=== PATIENT | female | born 1960 | race Caucasian/White ===

== ENCOUNTER 2019-08-29 08:02 | Day surgery (SDC) | payer OTHER ==
[2019-08-29] MEDS ORDERED: BOTOX IJ ONE (08:03)
[2019-08-29] MEDS ORDERED: Ketamine HCl 50 MG/ML ONE (09:42)
[2019-08-29] MEDS ORDERED: DIPRIVAN 200 MG/20 ML IV ONE (09:42)
[2019-08-29] MEDS ORDERED: Lactated Ringers 1,000 ML IV ONE (14:43)
== END 2019-08-29 10:23 | disposition home or self-care (01) ==
LOC: SDC-PAIN 08:02
PROVIDERS: ATTEND Psychiatry & Neurology Pain Medicine
DX: G43.709 Chronic migraine without aura, not intractable, without status migrainosus (principal); M54.18 Radiculopathy, sacral and sacrococcygeal region; Z79.899 Other long term (current) drug therapy
CPT/HCPCS: 64615; J2704; J0585

== ENCOUNTER 2019-12-05 09:14 | Day surgery (SDC) | payer OTHER ==
[2019-12-05] MEDS ORDERED: Depo-Medrol 40 MG/ML IM ONE (09:15)
[2019-12-05] MEDS ORDERED: Xylocaine 1% Vial 30 ML PF IJ ONE (09:15)
[2019-12-05] MEDS ORDERED: Sodium Chloride 0.9% 10 ML FLUSH Syringe IJ ONE (09:15)
[2019-12-05] MEDS ORDERED: DIPRIVAN 200 MG/20 ML IV ONE (10:28)
[2019-12-05] MEDS ORDERED: Ketamine HCl 50 MG/ML ONE (10:28)
--- NOTE | 2019-12-05 12:24 | XRAY ---
Indication: Lumbar JUN. Intraoperative fluoroscopy was provided for 15 seconds. 2 digital spot images submitted for interpretation demonstrates midline posterior needle tip projecting just posterior to the L3-L4 interspace. Small amount of contrast injected for needle tip placement. Correlate with intraoperative findings/report.
--- NOTE | 2019-12-05 14:26 | XRAY ---
15 seconds of fluoroscopy was used in surgery for a lumbar JUN.
[2019-12-05] MEDS ORDERED: Lactated Ringers 1,000 ML IV ONE (14:52)
== END 2019-12-05 11:21 | disposition home or self-care (01) ==
LOC: SDC-PAIN 09:14
PROVIDERS: ATTEND Psychiatry & Neurology Pain Medicine
DX: M54.16 Radiculopathy, lumbar region (principal); Z79.899 Other long term (current) drug therapy
CPT/HCPCS: 62323; 72100; 77003; J1030; J2001; J2704; Q9966

== ENCOUNTER 2019-12-26 15:10 | Day surgery (SDC) | payer OTHER ==
[~2019-12-26 15:10] MED LIST: DIPRIVAN 200 MG/20 ML IV ONE; Ketamine HCl 50 MG/ML ONE
[2019-12-26] MEDS ORDERED: BOTOX IJ ONE (15:11)
[2019-12-26] MEDS ORDERED: Lactated Ringers 1,000 ML IV ONE (15:58)
[2019-12-26] MEDS ORDERED: Versed 2 MG/2 ML Injection ONE (16:31)
== END 2019-12-26 17:21 | disposition home or self-care (01) ==
LOC: SDC-PAIN 15:10
PROVIDERS: ATTEND Psychiatry & Neurology Pain Medicine
DX: G43.909 Migraine, unspecified, not intractable, without status migrainosus (principal); Z79.899 Other long term (current) drug therapy
CPT/HCPCS: 64615; J2250; J2704; J0585

== ENCOUNTER 2020-04-30 13:48 | Day surgery (SDC) | payer OTHER ==
[2020-04-30] MEDS ORDERED: Decadron 4 MG INJ IV ONE (13:49)
[2020-04-30] MEDS ORDERED: Depo-Medrol 40 MG/ML IM ONE (13:49)
[2020-04-30] MEDS ORDERED: BUPIVACAINE 0.5% VIAL IJ ONE (13:49)
[2020-04-30] MEDS ORDERED: Xylocaine 1% Vial 30 ML PF IJ ONE (13:49)
[2020-04-30] MEDS ORDERED: DIPRIVAN 200 MG/20 ML IV ONE (15:11)
[2020-04-30] MEDS ORDERED: Lactated Ringers 1,000 ML IV ONE (15:17)
--- NOTE | 2020-04-30 16:40 | XRAY ---
20 seconds fluoroscopy time in surgery for bilateral piriformis muscle injection.
--- NOTE | 2020-04-30 16:41 | XRAY ---
Indication: Bilateral piriformis muscle injection. Intraoperative fluoroscopy was provided for 20 seconds. 2 digital spot images submitted for interpretation demonstrates posterior needle tip projecting over the expected left and right piriformis muscle. Small amount of contrast injected for both needle tip placement. Correlate with intraoperative findings/report.
== END 2020-04-30 15:45 | disposition home or self-care (01) ==
LOC: SDC-PAIN 13:48
PROVIDERS: ATTEND Psychiatry & Neurology Pain Medicine
DX: M60.9 Myositis, unspecified (principal); G56.03 Carpal tunnel syndrome, bilateral upper limbs; Z79.899 Other long term (current) drug therapy
CPT/HCPCS: 20526; 20552; 72202; 77002; J1030; J1100; J2001; J2704; Q9966

== ENCOUNTER 2020-07-04 12:16 | Emergency (ER) | payer OTHER ==
--- NOTE | 2020-07-04 12:18 | ERPHSYRPT ---
- History of Present Illness Time Seen by Provider: 07/04/20 12:18 Historian: patient Exam Limitations: no limitations Physician History: This is a 60-year-old white female who presents with sudden onset of left flank pain that radiates down into her left groin. Patient has had no vomiting but has had mild nausea. She is had no diarrhea. She has no chest pain and no shortness of breath. Patient has no history of nephrolithiasis/ureterolithiasis in the past. Patient states she is allergic to morphine but has had Dilaudid in the past with no problems. She has very little abdominal pain. Timing/Duration: today Activities at Onset: none Quality: sharpness, stabbing Abdominal Pain Onset Location: flank (Left) Pain Radiation: groin (Left) Severity of Pain-Max: moderate Severity of Pain-Current: moderate Modifying Factors: Improves With: nothing Associated Symptoms: No chest pain, No fever/chills, No nausea, No vomiting Previous symptoms: no prior history Allergies/Adverse Reactions: morphine Allergy (Severe, Verified 07/04/20 12:24) anaphylaxis Home Medications: Cetirizine HCl [Zyrtec] 10 mg PO 07/04/20 [History] Gabapentin [Gralise] 1,800 mg PO DAILY 07/04/20 [History] Montelukast Sodium 10 mg [Singulair 10 MG] 10 mg PO DAILY 07/04/20 [History] Travel Risk - International Travel Have you traveled outside of the country in past 3 weeks: No - Coronavirus Screening Are you exhibiting any of the following symptoms?: No Close contact with a COVID-19 positive Pt in past 14-21 Days: No - Review of Systems Constitutional: No Symptoms Eyes: No Symptoms Ears, Nose, & Throat: No Symptoms Respiratory: No Symptoms Cardiac: No Symptoms Abdominal/Gastrointestinal: No Symptoms Genitourinary Symptoms: No Symptoms Musculoskeletal: No Symptoms Skin: No Symptoms Neurological: No Symptoms Psychological: No Symptoms Endocrine: No Symptoms Hematologic/Lymphatic: No Symptoms Immunological/Allergic: No Symptoms All Other Systems: Reviewed and Negative - Past Medical History Pertinent Past Medical History: Yes Neurological History: Migraines Cardiac History: No Pertinent History Respiratory History: No Pertinent History Endocrine Medical History: No Pertinent History Musculoskeletal History: No Pertinent History Other Medical History: OCCIPITAL NEURALGIA; PT. HAS DAILY OCCIPITAL HAS INTO FRONTAL LOBE. - Past Surgical History Past Surgical History: Yes - Nursing Vital Signs Nursing Vital Signs: Initial Vital Signs Temperature 98.5 F 07/04/20 12:17 Pulse Rate 113 H 07/04/20 12:17 Respiratory Rate 28 H 07/04/20 12:17 Blood Pressure 173/102 07/04/20 12:17 O2 Sat by Pulse Oximetry 97 07/04/20 12:17 Pain Scale Pain Intensity 10 - Physical Exam General Appearance: moderate distress, alert, anxiety Eye Exam: PERRL/EOMI, eyes nml inspection Ears, Nose, Throat Exam: normal ENT inspection, moist mucous membranes Neck Exam: normal inspection, non-tender, supple, full range of motion Respiratory Exam: normal breath sounds, lungs clear, airway intact, No chest tenderness, No respiratory distress Cardiovascular Exam: tachycardia Pelvic Exam: not done Rectal Exam: not done Back Exam: normal inspection, normal range of motion, CVA tenderness (Left), No vertebral tenderness Extremity Exam: normal inspection, normal range of motion, pelvis stable Neurologic Exam: alert, oriented x 3, cooperative, healthcare analyst II-XII nml as tested, normal mood/affect, nml cerebellar function, nml station & gait, sensation nml Skin Exam: normal color, warm, dry Lymphatic Exam: No adenopathy SpO2 Interpretation: normal O2 Delivery: Room Air - Course Nursing assessment & vital signs reviewed: Yes EKG Interpreted by Me: RATE, Sinus Tach, NORMAL AXIS, NORMAL INTERVALS, NORMAL QRS, NORMAL ST-T, Other (Acute ischemic changes on today's EKG. Comparison EKG 05/23/2019 is essentially the same with no evidence of any significant change. Today's heart rate is 100 bpm and the EKG dated 05/23/2019 is 98 bpm everything else has remained the same.) Ordered Tests: Active Orders 24 hr Category Date Time Status EKG-ER Only STAT Care 07/04/20 12:37 Active IV Insertion STAT Care 07/04/20 12:37 Active ABDOMEN AND PELVIS W/0 CONTRAS [CT] Stat Exams 07/04/20 12:37 Completed AMYLASE Stat Lab 07/04/20 12:15 Completed CMP Stat Lab 07/04/20 12:15 Completed CULTURE,URINE Stat Lab 07/04/20 12:46 Received LIPASE Stat Lab 07/04/20 12:15 Completed Lactic Acid Stat Lab 07/04/20 12:45 Completed UA W/RFX UR CULTURE Stat Lab 07/04/20 12:46 Completed Medication Summary Discontinued Medications Generic Name Dose Route Start Last Admin Trade Name Jesseq PRN Reason Stop Dose Admin Hydromorphone HCl 1 mg 07/04/20 12:37 07/04/20 12:47 Hydromorphone 1 Mg/Ml Injection IV 07/04/20 12:38 1 mg STAT ONE Administration Hydromorphone HCl Confirm 07/04/20 12:39 Hydromorphone 1 Mg/Ml Injection Administered 07/04/20 12:40 Dose 1 mg .ROUTE .STK-MED ONE Hydromorphone HCl 1 mg 07/04/20 13:22 07/04/20 13:25 Hydromorphone 1 Mg/Ml Injection IV 07/04/20 13:23 1 mg STAT ONE Administration Hydromorphone HCl Confirm 07/04/20 13:24 Hydromorphone 1 Mg/Ml Injection Administered 07/04/20 13:25 Dose 1 mg .ROUTE .STK-MED ONE Sodium Chloride 1,000 mls @ 999 mls/hr 07/04/20 12:37 07/04/20 12:49 Sodium Chloride 0.9% 1000 Ml IV 07/04/20 13:37 999 mls/hr .Q1H1M STA Administration Sodium Chloride Confirm 07/04/20 12:48 Sodium Chloride 0.9% 1000 Ml Administered 07/04/20 12:49 Dose 1,000 mls @ ud .ROUTE .STK-MED ONE Ketorolac Tromethamine 30 mg 07/04/20 12:37 07/04/20 12:47 Toradol 30 Mg Injection IV 07/04/20 12:38 30 mg STAT ONE Administration Ketorolac Tromethamine Confirm 07/04/20 12:39 Toradol 30 Mg Injection Administered 07/04/20 12:40 Dose 30 mg .ROUTE .STK-MED ONE Ondansetron HCl 4 mg 07/04/20 12:37 07/04/20 12:47 Zofran 4 Mg/2 Ml Vial IV 07/04/20 12:38 4 mg STAT ONE Administration Ondansetron HCl Confirm 07/04/20 12:39 Zofran 4 Mg/2 Ml Vial Administered 07/04/20 12:40 Dose 4 mg .ROUTE .STK-MED ONE Lab/Rad Data: Laboratory Result Diagrams 07/04/20 12:15 Laboratory Results 07/04/20 07/04/20 07/04/20 Range/Units 12:46 12:45 12:15 Sodium 139 (137-145) mmol/L Potassium 3.9 (3.5-5.1) mmol/L Chloride 102 (98-107) mmol/L Carbon Dioxide 28 (22-30) mmol/L Anion Gap 12.9 (5-15) MEQ/L BUN 15 (7-17) mg/dL Creatinine 0.76 (0.52-1.04) mg/dL Estimated GFR > 60.0 ML/MIN Glucose 108 H (74-106) mg/dL Lactic Acid 1.4 (0.4-2.0) Calcium 10.1 (8.4-10.2) mg/dL Total Bilirubin 0.40 (0.2-1.3) mg/dL AST 32 (14-36) U/L ALT 42 H (0-35) U/L Alkaline Phosphatase 87 (38-126) U/L Serum Total Protein 7.8 (6.3-8.2) g/dL Albumin 4.6 (3.5-5.0) g/dL Amylase 53 (30-110) U/L Lipase 105 (23-300) U/L Urine Color YELLOW (YELLOW) Urine Appearance CLEAR (CLEAR) Urine pH 7.0 (5-6) Ur Specific [place] 1.014 (1.005-1.025) Urine Protein 30 (Negative) Urine Ketones NEGATIVE (NEGATIVE) Urine Blood MODERATE (0-5) Juan Ramon/ul Urine Nitrite NEGATIVE (NEGATIVE) Urine Bilirubin NEGATIVE (NEGATIVE) Urine Urobilinogen NEGATIVE (0-1) mg/dL Ur Leukocyte Esterase NEGATIVE (NEGATIVE) Urine WBC (Auto) 3-5 (0-5) /HPF Urine RBC (Auto) >101 (0-2) /HPF U Epithel Cells (Auto) RARE (FEW) /HPF Urine Bacteria (Auto) RARE (NEGATIVE) /HPF Urine Mucus (Auto) SLIGHT (NEGATIVE) /HPF Urine Culture Reflexed YES (NO) Urine Glucose NEGATIVE (NEGATIVE) mg/dL - Progress Progress: improved, pain not gone completely, re-examined Progress Note: 07/04/20 13:36 Patient states that her pain has significantly improved but is beginning to come back again. CAT scan of the abdomen pelvis without contrast shows a new 7 mm left UVJ calculus producing moderate hydronephrosis and moderate hydroureter. 07/04/20 13:52 Medical decision making: I did speak with Dr. Menendez, urologist at [facility]. This was at the request of the patient. Dr. Menendez stated that the patient had 3 options. 1 is to go home with pain medicine and Flomax, #2 follow-up at [facility] if her symptoms suddenly worsen, or 3 she could be transferred to [facility] where he would take care of her as an inpatient and provide intravenous fluids, pain control and then proceed with surgical intervention tomorrow morning. I gave these options to the patient and she prefers to be transferred at this time. Counseled pt/family regarding: lab results, diagnosis, need for follow-up, rad results - Departure Departure Disposition: Transfer Clinical Impression: Left ureteral calculus Condition: Stable Critical Care Time: No Referrals: YOSELIN RENO NP [Primary Care Provider] -
[2020-07-04] MEDS ORDERED: Sodium Chloride 0.9% 1000 ML 1,000 ML IV STA (12:37)
[2020-07-04] MEDS ORDERED: Zofran 4 MG/2 ML VIAL IV ONE (12:37)
[2020-07-04] MEDS ORDERED: TORAdol 30 mg Injection IV ONE (12:37)
[2020-07-04] MEDS ORDERED: Hydromorphone 1 mg/ml Injection IV ONE ×2 (12:37→13:22)
[2020-07-04] MEDS ORDERED: TORAdol 30 mg Injection ONE (12:39)
[2020-07-04] MEDS ORDERED: Hydromorphone 1 mg/ml Injection ONE ×2 (12:39→13:24)
[2020-07-04] MEDS ORDERED: Zofran 4 MG/2 ML VIAL ONE (12:39)
[2020-07-04] MEDS ORDERED: Sodium Chloride 0.9% 1000 ML 1,000 ML ONE (12:48)
[2020-07-04 12:58] LABS: Appearance CLEAR (CLEAR); Bacteria RARE /HPF (NEGATIVE); Bilirubin NEGATIVE (NEGATIVE); Blood MODERATE Ery/ul (0-5); Epithelial Cells RARE /HPF (FEW); Glucose NEGATIVE (NEGATIVE); Ketones NEGATIVE (NEGATIVE); Leukocyte Esterase NEGATIVE (NEGATIVE); Mucus SLIGHT /HPF (NEGATIVE); Nitrite NEGATIVE (NEGATIVE); Protein,Urine Dip 30 (Negative); Specific Gravity 1.014 (1.005-1.025); Urobilinogen NEGATIVE mg/dL (0-1)
[2020-07-04 12:59] LABS: RBC >101 /HPF (0-2)
[2020-07-04 13:08] LABS: ALBUMIN 4.6 g/dL (3.5-5.0); ALKALINE PHOSPHATASE 87 U/L (38-126); AMYLASE 53 U/L (30-110); ANION GAP 12.9 MEQ/L (5-15); BLOOD UREA NITROGEN 15 mg/dL (7-17); CHLORIDE 102 mmol/L (98-107); Calcium 10.1 mg/dL (8.4-10.2); Carbon Dioxide 28 mmol/L (22-30); Creatinine 1 0.76 mg/dL (0.52-1.04); EST GLOMERULAR FILTRATION RATE > 60.0 ML/MIN; Glucose 108 mg/dL (74-106); LIPASE 105 U/L (23-300); Potassium 3.9 mmol/L (3.5-5.1); SGOT/AST 32 U/L (14-36); SGPT/ALT 42 U/L (0-35); SODIUM 139 mmol/L (137-145); Total Protein 7.8 g/dL (6.3-8.2)
--- NOTE | 2020-07-04 13:21 | XRAY ---
Indication: Left flank pain. Dysuria. Multiple contiguous axial images obtained through the abdomen and pelvis without contrast using renal stone protocol. Comparison: January 29, 2009. Lung bases demonstrates minimal bilateral dependent atelectasis. No infiltrate or effusion. Heart is not enlarged. New 7 mm left UVJ calculus. Proximal left ureter is distended up to 15 mm long with moderate hydronephrosis consistent with high-grade obstructive uropathy. No perinephric fluid. Right kidney demonstrates enlarging 5.9 cm upper pole cyst and new 1.6 cm lower pole cyst. Noncontrasted stomach and bowel loops are nonobstructed. Normal appendix. Again cholecystectomy and hysterectomy. No free fluid/air. Remaining liver, pancreas, spleen, adrenal glands, kidneys, ureters, and bladder are unremarkable for noncontrast exam. Minimal aortoiliac calcifications without AAA. Osseous structures intact with minimal degenerative changes throughout the spine. New small fatty left inguinal hernia. Impression: 1. New 7 mm left UVJ calculus producing moderate hydronephrosis and moderate hydroureter as detailed. 2. Enlarging right upper renal cyst and new lower renal cyst. 3. New small fatty left inguinal hernia.
[2020-07-04 13:23] VITALS: PULSE 104
[2020-07-04 14:03] VITALS: BP 124/77; O2SAT 98
[2020-07-04] MEDS ORDERED: Flomax 0.4 MG ONE (14:03)
[2020-07-04 14:19] LABS: Absolute Neutrophil Ct (ANC) 3.94 (1.4-6.9); BASOPHIL % 0.5 % (0.0-0.4); Basophil (Absolute #) 0.04 (0-0.4); Eosinophil % 4.6 % (0.00-5.0); Eosinophil (Absolute #) 0.35 (0-0.5); Hematocrit 44.2 % (35-47); Hemoglobin 13.8 gm/dl (12.0-16.0); Lymphocyte (Absolute #) 2.61 (1.0-4.6); Lymphocytes % 34.4 % (24.0-44.0); Mean Corpuscular Hemoglobin 27.5 pg (26-32); Mean Corpuscular Hgb Concent. 31.2 g/dl (32-36); Mean Platelet Volume 10.2 fl (7.5-11.0); Monocyte (Absolute #) 0.64 (0.0-1.3); Monocytes % 8.4 % (0.0-12.0); Neutrophil % 52.1 % (36.0-66.0); Platelet Count 375 K/mm3 (150-450); Red Blood Count 5.02 M/mm3 (4.1-5.4); Red Cell Distribution Width 16.1 % (11.5-14.0); White Blood Count 7.6 K/mm3 (4.0-10.5)
[2020-07-05] MEDS ORDERED: Flomax 0.4 MG PO ONE (14:00)
== END 2020-07-04 14:20 | disposition short-term general hospital (02) ==
LOC: ED 12:16
DX: N20.1 Calculus of ureter (principal)
CPT/HCPCS: 36000; 36415; 74176; 80053; 81001; 82150; 83605; 83690; 85025; 87077; 87086; 87186; 93005; 96360; 96374; 96375; 96376; 99285; J1170; J1885; J2405; A9270-GY

== ENCOUNTER 2021-06-17 12:05 | Day surgery (SDC) | payer OTHER ==
[2021-06-17] MEDS ORDERED: BUPIVACAINE 0.5% VIAL IJ ONE (12:06)
[2021-06-17] MEDS ORDERED: Depo-Medrol 40 MG/ML IM ONE (12:06)
[2021-06-17] MEDS ORDERED: Lactated Ringers 1,000 ML IV ONE (13:07)
[2021-06-17] MEDS ORDERED: DIPRIVAN 200 MG/20 ML IV ONE (13:52)
--- NOTE | 2021-06-17 15:08 | XRAY ---
Indication: Bilateral SI joint injection. Intraoperative fluoroscopy provided for 16 seconds. 4 digital spot image submitted for interpretation demonstrates posterior needle tip projecting over the inferior left and right SI joint. Correlate with intraoperative findings/report.
--- NOTE | 2021-06-17 17:15 | XRAY ---
16 seconds fluoroscopy time in surgery for injections of both SI joints.
== END 2021-06-17 14:20 | disposition home or self-care (01) ==
LOC: SDC-PAIN 12:05
PROVIDERS: ATTEND Psychiatry & Neurology Pain Medicine
DX: M46.1 Sacroiliitis, not elsewhere classified (principal); R73.03 Prediabetes; Z79.899 Other long term (current) drug therapy
CPT/HCPCS: 27096; 72202; 77002; 82947; J1030; J2704; G0260

== ENCOUNTER 2021-07-08 15:05 | Day surgery (SDC) | payer OTHER ==
[2021-07-08] MEDS ORDERED: Xylocaine 1% Vial 30 ML PF IJ ONE (15:06)
[2021-07-08] MEDS ORDERED: Decadron 4 MG INJ IV ONE (15:06)
[2021-07-08] MEDS ORDERED: MORPHINE SULFATE 2 MG INJ ONE (17:04)
[2021-07-08] MEDS ORDERED: Lactated Ringers 1,000 ML IV ONE (17:17)
[2021-07-08] MEDS ORDERED: SUBLIMAZE 100 MCG/2 ML ONE (17:18)
[2021-07-08] MEDS ORDERED: DIPRIVAN 200 MG/20 ML IV ONE (17:45)
[2021-07-08] MEDS ORDERED: TORAdol 30 mg Injection ONE (17:52)
[2021-07-08] MEDS ORDERED: Decadron 4 MG INJ ONE (17:53)
[2021-07-08] MEDS ORDERED: Ketamine HCl 50 MG/ML ONE (17:54)
--- NOTE | 2021-07-08 22:21 | XRAY ---
Indication: Bilateral piriformis injections. Intraoperative fluoroscopy provided for 1 minutes 7 seconds. 2 digital spot image submitted for interpretation demonstrates posterior needle tip projecting over the expected left and right piriformis muscles. Small amount of contrast injected for needle tip placement. Correlate with intraoperative findings/report.
--- NOTE | 2021-07-09 09:02 | XRAY ---
One minute and 7 seconds of fluoroscopy was used in surgery for a bilateral piriformis injection.
== END 2021-07-08 18:21 | disposition home or self-care (01) ==
LOC: SDC-PAIN 15:05
PROVIDERS: ATTEND Psychiatry & Neurology Pain Medicine
DX: M46.1 Sacroiliitis, not elsewhere classified (principal); Z79.899 Other long term (current) drug therapy
CPT/HCPCS: 20552; 72202; 77002; J1100; J1885; J2001; J2270; J2704; J3010; Q9966

== ENCOUNTER 2021-09-23 12:05 | Day surgery (SDC) | payer OTHER ==
[2021-09-23] MEDS ORDERED: Lactated Ringers 1,000 ML IV ONE (13:54)
[2021-09-23] MEDS ORDERED: MORPHINE SULFATE 2 MG INJ ONE (13:58)
[2021-09-23] MEDS ORDERED: DIPRIVAN 200 MG/20 ML IV ONE (14:32)
[2021-09-23] MEDS ORDERED: TORAdol 30 mg Injection IM ONE (15:00)
[2021-09-23] MEDS ORDERED: TORAdol 30 mg Injection ONE (15:03)
--- NOTE | 2021-09-23 16:47 | XRAY ---
38 seconds fluoroscopy time in surgery for injection of both piriformis muscles.
--- NOTE | 2021-09-23 16:48 | XRAY ---
Indication: Bilateral piriformis muscle injection. Intraoperative fluoroscopy provided for 38 seconds. 2 digital spot images submitted for interpretation demonstrates posterior needle tip projecting over the left and right piriformis muscle. Small amount of contrast injected for needle tip placement. Correlate with intraoperative findings/report.
== END 2021-09-23 15:00 | disposition home or self-care (01) ==
LOC: SDC-PAIN 12:05
PROVIDERS: ATTEND Psychiatry & Neurology Pain Medicine
DX: M79.18 Myalgia, other site (principal); Z79.899 Other long term (current) drug therapy
CPT/HCPCS: 72202; 77002; J1885; J2270; J2704

== ENCOUNTER 2021-10-07 12:17 | Day surgery (SDC) | payer OTHER ==
[2021-10-07] MEDS ORDERED: Sodium Chloride 0.9(Preservative Free) 10 ML IJ ONE (12:18)
[2021-10-07] MEDS ORDERED: Depo-Medrol 40 MG/ML IM ONE (12:18)
[2021-10-07] MEDS ORDERED: Xylocaine 1% Vial 30 ML PF IJ ONE (12:18)
[2021-10-07] MEDS ORDERED: Lactated Ringers 1,000 ML IV ONE (15:58)
[2021-10-07] MEDS ORDERED: DIPRIVAN 200 MG/20 ML IV ONE (16:36)
--- NOTE | 2021-10-07 17:42 | XRAY ---
Indication: Lumbar JUN. Intraoperative fluoroscopy provided for 19 seconds. 2 digital spot image submitted for interpretation demonstrates midline posterior needle tip projecting just posterior to L4-L5 interspace. Small amount of contrast injected for needle tip placement. Correlate with intraoperative findings/report.
--- NOTE | 2021-10-08 08:49 | XRAY ---
19 seconds fluoroscopy time in surgery for lumbar JUN.
== END 2021-10-07 17:05 | disposition home or self-care (01) ==
LOC: SDC-PAIN 12:17
PROVIDERS: ATTEND Psychiatry & Neurology Pain Medicine
DX: M54.16 Radiculopathy, lumbar region (principal); Z79.899 Other long term (current) drug therapy
CPT/HCPCS: 62323; 72100; 77003; J1030; J2001; J2704; Q9966

== ENCOUNTER 2022-01-13 15:49 | Day surgery (SDC) | payer OTHER ==
[2022-01-13] MEDS ORDERED: Sodium Chloride 0.9(Preservative Free) 10 ML IJ ONE (15:50)
[2022-01-13] MEDS ORDERED: Depo-Medrol 40 MG/ML IM ONE (15:50)
[2022-01-13] MEDS ORDERED: Pepcid 20 MG VIAL IV ONE (16:11)
[2022-01-13] MEDS ORDERED: Reglan 10 MG/2 ML ONE (16:11)
[2022-01-13] MEDS ORDERED: Lactated Ringers 1,000 ML IV ONE (16:44)
[2022-01-13] MEDS ORDERED: DIPRIVAN 200 MG/20 ML IV ONE (17:12)
--- NOTE | 2022-01-13 20:15 | XRAY ---
Indication: Right L4-S1 transforaminal JUN. Intraoperative fluoroscopy provided for 26 seconds. 4 digital spot images submitted for interpretation demonstrates posterior needle tips projecting over the right L4 and L5 nerve roots. Small amount of contrast injected for needle tip placement. Correlate with intraoperative findings/report.
--- NOTE | 2022-01-14 09:44 | XRAY ---
26 seconds of fluoroscopy was used in surgery for a right L4-S1 transforaminal JUN.
== END 2022-01-13 17:39 | disposition home or self-care (01) ==
LOC: SDC-PAIN 15:49
PROVIDERS: ATTEND Psychiatry & Neurology Pain Medicine
DX: M54.16 Radiculopathy, lumbar region (principal); Z79.899 Other long term (current) drug therapy
CPT/HCPCS: 64483; 64484; 72100; 77003; J1030; J2704; Q9966

== ENCOUNTER 2022-07-21 14:40 | Day surgery (SDC) | payer OTHER ==
[2022-07-21] MEDS ORDERED: BUPIVACAINE 0.5% VIAL IJ ONE (14:41)
[2022-07-21] MEDS ORDERED: Depo-Medrol 40 MG/ML IM ONE (14:41)
[2022-07-21] MEDS ORDERED: Zofran 4 MG/2 ML VIAL ONE (15:04)
[2022-07-21] MEDS ORDERED: Pepcid 20 MG VIAL IV ONE (15:05)
[2022-07-21] MEDS ORDERED: Reglan 10 MG/2 ML ONE (15:05)
[2022-07-21] MEDS ORDERED: VERSED 5 MG/5 ML ONE (16:26)
[2022-07-21] MEDS ORDERED: DIPRIVAN 200 MG/20 ML IV ONE (16:38)
[2022-07-21] MEDS ORDERED: Lactated Ringers 1,000 ML IV ONE (17:32)
--- NOTE | 2022-07-21 19:58 | XRAY ---
Indication: Bilateral SI joint injection. Intraoperative fluoroscopy provided for 24 seconds. 4 digital spot image submitted for interpretation demonstrates posterior needle tip projecting over the left and right SI joint. Correlate with intraoperative findings/report.
--- NOTE | 2022-07-22 08:46 | XRAY ---
24 seconds of fluoroscopy was used in surgery for a bilateral sacroiliac joint injection.
== END 2022-07-21 17:10 | disposition home or self-care (01) ==
LOC: SDC-PAIN 14:40
PROVIDERS: ATTEND Psychiatry & Neurology Pain Medicine
DX: M46.1 Sacroiliitis, not elsewhere classified (principal); Z79.899 Other long term (current) drug therapy
CPT/HCPCS: 27096; 72202; 77002; J1030; J2250; J2405; J2704; G0260

== ENCOUNTER 2023-01-01 13:59 | Emergency (ER) | payer OTHER ==
--- NOTE | 2023-01-01 14:03 | ERPHSYRPT ---
- History of Present Illness Time Seen by Provider: 01/01/23 14:03 Source: patient, family Exam Limitations: no limitations Physician History: This is a 62-year-old white female patient of Dr. Vasquez who 5 to 6 days ago hit her forehead against the camper causing her to fall backwards hitting the back of her head. She did not seek medical care/evaluation until today. In the last 5 to 6 days she has had constant headache with associated dizziness, nausea and today is feeling off balance when she is ambulating. Patient denies chest pain. Patient denies shortness of breath. Patient denies abdominal pain. She has no pain in any of her extremities. Patient has a history of degenerative disc disease, gastroesophageal reflux disease, hypertension, adult ADHD, cervicaloccipital neuralgia, and hepatitis C. Occurred: days ago (5 to 6 days ago) Severity: moderate Head Injury Location: global Method of Injury: fell Loss of Consciousness: unsure Associated Symptoms: nausea, headaches, No abdominal pain, No shortness of breath, No chest pain, No seizure Allergies/Adverse Reactions: No Known Drug Allergies Allergy (Verified 01/01/23 14:12) Home Medications: Cetirizine HCl [Zyrtec] 10 mg PO DAILY 07/04/20 [History] Gabapentin [Gralise] 600 mg PO HS 07/04/20 [History] Dextroamphetamine/Amphetamine [Adderall Xr 20 mg Capsule] 1 cap PO DAILY 3 [History] Omeprazole Magnesium 1 cap PO DAILY PRN 01/01/23 [History] Hx Tetanus, Diphtheria Vaccination/Date Given: Yes Hx Influenza Vaccination/Date Given: Yes Hx Pneumococcal Vaccination/Date Given: No Travel Risk - International Travel Have you traveled outside of the country in past 3 weeks: No - Coronavirus Screening Are you exhibiting any of the following symptoms?: No Close contact with a COVID-19 positive Pt in past 14-21 Days: No - Review of Systems Constitutional: No Symptoms Eyes: No Symptoms Ears, Nose, & Throat: No Symptoms Respiratory: No Symptoms Cardiac: No Symptoms Abdominal/Gastrointestinal: Nausea, No Abdominal Pain, No Vomiting, No Diarrhea, No Appetite Changes Genitourinary Symptoms: No Symptoms Musculoskeletal: Fall, No Back Pain, No Neck Pain Skin: No Symptoms Neurological: Dizziness, Headache Psychological: No Symptoms Endocrine: No Symptoms Hematologic/Lymphatic: No Symptoms Immunological/Allergic: No Symptoms All Other Systems: Reviewed and Negative - Past Medical History Pertinent Past Medical History: Yes Neurological History: No Pertinent History Cardiac History: Hypertension Respiratory History: No Pertinent History Endocrine Medical History: No Pertinent History Musculoskeletal History: Degenerative Disk Disease, Osteoarthritis Other Medical History: SX HX: SURGERY PLANTAR FASCITIS, LEFT KNEE REPLACEMENT AND 3 NECK SURGERIES INCLUDING MOST RECENTLY PLACEMENT OF CAGE DUE TO RADICULOPATHY. OTHER PMHX: CERVICO-OCCIPITAL NEURALGIA, ANXIETY/DEPRESSION, ADULT ADHD, GERD, HEP C ANTIBODY TEST POSITIVE - Past Surgical History Past Surgical History: Yes Other Surgical History: cervical. hysterectomy. bilat knee - Social History Smoking Status: Former smoker Exposure to second hand smoke: No Drug Use: none Patient Lives Alone: No - Nursing Vital Signs Nursing Vital Signs: Initial Vital Signs Pulse Rate 92 H 01/01/23 14:15 Respiratory Rate 17 01/01/23 14:15 Blood Pressure 173/77 01/01/23 14:15 O2 Sat by Pulse Oximetry 95 01/01/23 14:15 Pain Scale Pain Intensity 0 - Fountain Coma Score Best Eye Response (Terry): (4) open spontaneously Best Verbal Response (Teryr): (5) oriented Best Motor Response (Terry): (6) obeys commands Terry Total: 15 - Physical Exam General Appearance: no apparent distress, alert, anxiety Head Injury: contusions (Mild with 2 to 3 mm abrasion site mid forehead) Eye Exam: bilateral eye: normal inspection, PERRL, EOMI ENT Exam: airway nml, evidence of ENT injury, nml ext.inspection, No dental injury, No clear fluid (ears), No clear fluid (nose) Neck Exam: supple, trachea midline, full range of motion, normal alignment, normal inspection, paraspinous muscle tender (Mild bilateral to palpation), No muscle spasm Cardiovascular/Respiratory Exam: chest non-tender, normal breath sounds, regular rate/rhythm, heart sounds normal, no respiratory distress, normal peripheral pulses, No subcutaneous emphysema, No crepitus Gastrointestinal/Abdominal Exam: soft, non tender, no distention, no mass, no guarding, no ecchymosis, no organomegaly, no pulsatile mass, normal bowel sounds Pelvic Exam: not done Rectal Exam: not done Back Exam: normal inspection, normal range of motion, No CVA tenderness, No vertebral tenderness Extremity Exam: non-tender, normal range of motion, normal inspection, normal capillary refill, no calf tenderness, no pedal edema, pelvis stable Mental Status Exam: alert, oriented x 3, cooperative recruitment internship Exam: normal hearing, normal speech, PERRL, tongue midline Coordination/Gait Exam: normal gait Motor/Sensory Exam: no motor deficit, no sensory deficit Skin Exam: normal color, warm, dry Lymphatic Exam: No adenopathy SpO2 Interpretation: normal O2 Delivery: Room Air - Course Nursing assessment & vital signs reviewed: Yes Ordered Tests: Active Orders 24 hr Category Date Time Status IV Insertion STAT Care 01/01/23 14:19 Active CERVICAL SPINE WO CONTRAST [CT] Stat Exams 01/01/23 14:21 Completed HEAD WITHOUT CONTRAST [CT] Stat Exams 01/01/23 14:20 Completed CBC W DIFF Stat Lab 01/01/23 14:30 Completed CMP Stat Lab 01/01/23 14:30 Completed CULTURE,URINE Stat Lab 01/01/23 16:00 Received UA W/RFX UR CULTURE Stat Lab 01/01/23 16:00 Completed Medication Summary Discontinued Medications Generic Name Dose Route Start Last Admin Trade Name Freq PRN Reason Stop Dose Admin Prochlorperazine Edisylate 5 mg 01/01/23 14:19 01/01/23 14:29 Prochlorperazine Edisylate 10 Mg/2 Ml Vial IV 01/01/23 14:20 5 mg STAT ONE Administration Prochlorperazine Edisylate Confirm 01/01/23 14:27 Prochlorperazine Edisylate 10 Mg/2 Ml Vial Administered 01/01/23 14:28 Dose 10 mg .ROUTE .[facility] Lab/Rad Data: Laboratory Result Diagrams 01/01/23 14:30 01/01/23 14:30 Laboratory Results 01/01/23 01/01/23 01/01/23 Range/Units 16:00 14:30 14:30 WBC 7.5 (4.0-10.5) x10^3/uL RBC 4.97 (4.1-5.4) x10^6/uL Hgb 13.5 (12.0-16.0) g/dL Hct 43.5 (35-47) % MCV 87.5 (78-100) fL MCH 27.2 (26-32) pg MCHC 31.0 L (32-36) g/dL RDW 14.5 H (11.5-14.0) % Plt Count 293 (150-450) x10^3/uL MPV 9.6 (7.5-11.0) fL Gran % 59.4 (36.0-66.0) % Immature Gran % (Auto) 0.4 (0.00-0.4) % Nucleat RBC Rel Count 0.0 (0.00-0.1) % Eos # (Auto) 0.20 (0-0.5) x10^3/uL Immature Gran # (Auto) 0.03 (0.00-0.03) x10^3u/L Absolute Lymphs (auto) 2.24 (1.0-4.6) x10^3/uL Absolute Monos (auto) 0.50 (0.0-1.3) x10^3/uL Absolute Nucleated RBC 0.00 (0.00-0.01) x10^3u/L Lymphocytes % 29.9 (24.0-44.0) % Monocytes % 6.7 (0.0-12.0) % Eosinophils % 2.7 (0.00-5.0) % Basophils % 0.9 (0.0-0.4) % Absolute Granulocytes 4.45 (1.4-6.9) x10^3/uL Basophils # 0.07 (0-0.4) x10^3/uL Sodium 140 (137-145) mmol/L Potassium 3.7 (3.5-5.1) mmol/L Chloride 104 (98-107) mmol/L Carbon Dioxide 28 (22-30) mmol/L Anion Gap 11.7 (5-15) MEQ/L BUN 13 (7-17) mg/dL Creatinine 0.62 (0.52-1.04) mg/dL Estimated GFR > 60.0 ML/MIN Glucose 102 (74-106) mg/dL Calcium 9.4 (8.4-10.2) mg/dL Total Bilirubin 0.60 (0.2-1.3) mg/dL AST 26 (14-36) U/L ALT 26 (0-35) U/L Alkaline Phosphatase 91 (38-126) U/L Serum Total Protein 7.4 (6.3-8.2) g/dL Albumin 4.3 (3.5-5.0) g/dL Urine Color Yellow (Yellow) Urine Appearance Clear (Clear) Urine pH 6.0 (4.6-8.0) Ur Specific Mason 1.010 (1.005-1.030) Urine Protein Negative (Negative) Urine Glucose (UA) Negative (Negative) mg/dL Urine Ketones Negative (Negative) Urine Blood Negative (Negative) Urine Nitrite Negative (Negative) Urine Bilirubin Negative (Negative) Urine Urobilinogen 1.0 A (0.2) mg/dL Ur Leukocyte Esterase Small A (Negative) U Hyaline Cast (Auto) NONE SEEN (0-2) /LPF Urine Microscopic RBC 0-2 (0-5) /HPF Urine Microscopic WBC 11-20 A (0-5) /HPF Ur Epithelial Cells None Seen (None Seen) /HPF Urine Bacteria Few A (None Seen) /HPF Urine Culture Reflexed YES (NO) - Progress Progress: improved, re-examined Progress Note: 01/01/23 15:57 This patient's medical issue is 1 of moderate complexity. Level complexity and the work-up performed is based on review of the patient's past medical history, review of the patient's medication list, review of the patient's drug allergy list, history present illness and physical findings on examination. The work-up in this patient includes placement of an intravenous line, providing the patient with Compazine 5 mg intravenously, and using normal saline solution intravenously, CT scan of the head without contrast, CT scan of the cervical spine without contrast, CBC, CMP and urinalysis. The work-up results were reviewed by me. The urinalysis is still pending. However the CT scan of the head shows no acute intracranial abnormality. The cervical spine CT scan without contrast shows muscle spasms without any trauma related spinal injury. There are chronic, generalized arthritic, degenerative changes in the cervical s pine. Currently, the patient is resting comfortably without nausea and without vertigo. If there is a urinary tract infection we will treat that with an antibiotic here in the emergency department followed by outpatient treatment. We will also remotely send a prescription for antiemetic to the patient's pharmacy. Counseled pt/family regarding: lab results, diagnosis, need for follow-up, rad results Medical Desision Making - Independent Historian Additional History obtained from: Spouse - Diagnostic Testing Diagnostic test were ordered, analyzed, and reviewed by me: Yes Radiological Interpretation: Reviewed by me, Teleradiologist Report - Risk of complications The pt has a mod risk of morbidity or mortality based on: Need for prescription drug management - Departure Departure Disposition: Home Clinical Impression: Head injury, Post-concussion vertigo, UTI (urinary tract infection) Condition: Stable Critical Care Time: No Referrals: KRISHAN ZHOU DO [Primary Care Provider] - Follow up/PCP as directed Additional Instructions: Drink plenty of fluids. Take your medication as prescribed. Follow-up with your primary care provider on 01/03/2023 for further evaluation management. Prescriptions: Prochlorperazine Maleate 5 mg* [Compazine 5 MG] 5 mg PO Q8H PRN #9 tablet MDD 3 PRN Reason: Nausea/Vomiting Cephalexin Mh 500 mg [Keflex 500 mg] 500 mg PO TID #21 cap
[2023-01-01] MEDS ORDERED: Compazine 10 MG/2 ML IV ONE (14:19)
[2023-01-01] MEDS ORDERED: Compazine 10 MG/2 ML ONE (14:27)
[2023-01-01 14:32] LABS: Absolute Neutrophil Ct (ANC) 4.45 x10^3/uL (1.4-6.9); BASOPHIL % 0.9 % (0.0-0.4); Basophil (Absolute #) 0.07 x10^3/uL (0-0.4); Eosinophil % 2.7 % (0.00-5.0); Hematocrit 43.5 % (35-47); Hemoglobin 13.5 g/dL (12.0-16.0); IMMATURE GRAN # 0.03 x10^3u/L (0.00-0.03); IMMATURE GRAN % 0.4 % (0.00-0.4); Lymphocyte (Absolute #) 2.24 x10^3/uL (1.0-4.6); Lymphocytes % 29.9 % (24.0-44.0); Mean Cell Volume 87.5 fL (78-100); Mean Corpuscular Hemoglobin 27.2 pg (26-32); Mean Platelet Volume 9.6 fL (7.5-11.0); Monocytes % 6.7 % (0.0-12.0); Neutrophil % 59.4 % (36.0-66.0); Platelet Count 293 x10^3/uL (150-450); Red Blood Count 4.97 x10^6/uL (4.1-5.4); Red Cell Distribution Width 14.5 % (11.5-14.0); White Blood Count 7.5 x10^3/uL (4.0-10.5)
[2023-01-01 14:50] LABS: ALBUMIN 4.3 g/dL (3.5-5.0); ALKALINE PHOSPHATASE 91 U/L (38-126); ANION GAP 11.7 MEQ/L (5-15); BLOOD UREA NITROGEN 13 mg/dL (7-17); CHLORIDE 104 mmol/L (98-107); Calcium 9.4 mg/dL (8.4-10.2); Carbon Dioxide 28 mmol/L (22-30); Creatinine 1 0.62 mg/dL (0.52-1.04); EST GLOMERULAR FILTRATION RATE > 60.0 ML/MIN; Glucose 102 mg/dL (74-106); Potassium 3.7 mmol/L (3.5-5.1); SGOT/AST 26 U/L (14-36); SGPT/ALT 26 U/L (0-35); SODIUM 140 mmol/L (137-145); Total Protein 7.4 g/dL (6.3-8.2)
--- NOTE | 2023-01-01 15:40 | XRAY ---
CLINICAL HISTORY:Fall injury COMPARISON:None. TECHNIQUE:Contiguous, multislice, nonenhanced CT scan of the cervical spine in the axial plane with multiplanar reconstructions. FINDINGS: Straightening of cervical lordosis reflecting muscle spasm. Status post ACDF at C5-C6 showing intervening disc prosthesis. Fused C4, C5 vertebrae noted. Subtle anterolisthesis of C3 over C4 noted. No vertebral wedging or collapse. Degenerative changes mainly at C6, C7 vertebrae showing marginal osteophytosis. Reduced C6-C7 intervertebral disc space height. Preserved spinal canal with no retropulsed fragments. At C2-C3, C3-C4, no significant disc protrusion noted. At C6-C7, there is posterior disc bulge compressing the thecal sac and encroaching upon the lateral recesses and neural foramina. Facetal arthritic changes at multiple levels. Normal appearance of the atlantoaxial joint. No paraspinal masses or collections. IMPRESSION: 1. Trauma patient with no related significant spinal injury. 2. Neck muscle spasm. 3. Status post ACDF at C5-C6 showing intervening disc prosthesis without hardware complications. Fused C4, C5 vertebrae. 4. Subtle anterolisthesis of C3 over C4. 5. Cervical spondylitic degenerative changes with marginal osteophytes and degenerated disks at C6-C7 level as described. MRI may be recommended if clinically needed. 6. Facetal arthritic changes at multiple levels. Electronically Signed by: Joel Jorgensen MD. (01/01/2023 14:38:26 SENIOR SYSTEMS SOFTWARE ENGINEER)
--- NOTE | 2023-01-01 15:42 | XRAY ---
CLINICAL HISTORY:Fall injury COMPARISON:None. TECHNIQUE:Non-enhanced CT scan of the brain in the axial plane with multiplanar reconstructions in bony and soft tissue windows. FINDINGS: Normal CT attenuation of both cerebral hemispheres with no areas of abnormal attenuation values. No suspicious space-occupying lesions. No intra or extra-axial collections of fresh blood density. Normal size and shape of the ventricles, basal cisterns and cortical sulci. Basal ganglia, thalamus and internal capsule appear normal. Brainstem and vladimir appear normal. No shift of midline structures. Unremarkable posterior fossa. Largely preserved cranial calvarial bones. Visualized paranasal sinuses appear clear. IMPRESSION: 1. No acute intracranial abnormality. 2. Unremarkable study of CT brain. Electronically Signed by: Joel Jorgensen MD. (01/01/2023 14:41:54 ISOLATION WASHER)
[2023-01-01 15:46] VITALS: BP 155/80; PULSE 94; O2SAT 90
[2023-01-01 16:10] LABS: Appearance Clear (Clear); Bacteria Few /HPF (None Seen); Bilirubin Negative (Negative); Blood Negative (Negative); Epithelial Cells None Seen /HPF (None Seen); Glucose, Urine Negative (Negative); Hyaline Casts NONE SEEN /LPF (0-2); Ketones Negative (Negative); Leukocyte Esterase Small (Negative); Nitrite Negative (Negative); Protein,Urine Dip Negative (Negative); RBC 0-2 /HPF (0-5)
[2023-01-01 16:13] LABS: ADD URINE CULTURE? YES (NO)
[2023-01-01] MEDS ORDERED: KEFLEX 500 MG PO ONE ×2 (16:28→16:43)
[2023-01-01] MEDS ORDERED: KEFLEX 500 MG ONE ×2 (16:33→16:41)
[2023-01-01] MEDS ORDERED: Compazine 5 MG PO PRN (16:44)
[2023-01-01] MEDS ORDERED: Compazine 5 MG ONE (16:47)
== END 2023-01-01 17:01 | disposition home or self-care (01) ==
LOC: ED 13:59
DX: S09.90XA Unspecified injury of head, initial encounter (principal); W22.09XA Striking against other stationary object, initial encounter; R42 Dizziness and giddiness; G44.309 Post-traumatic headache, unspecified, not intractable; F07.81 Postconcussional syndrome; N39.0 Urinary tract infection, site not specified; R11.0 Nausea; I10 Essential (primary) hypertension; Z79.899 Other long term (current) drug therapy
CPT/HCPCS: 36000; 36415; 70450; 72125; 80053; 81001; 85025; 87077; 87086; 87186; 96374; 99284; A9270-GY

== ENCOUNTER 2023-12-07 19:09 | Observation (INO) | payer OTHER ==
[2023-12-07] MEDS ORDERED: TYLENOL 325 MG PO PRN (19:50)
[2023-12-07 20:27] LABS: BASOPHIL % 1.7 % (0.1-1.2); Basophil (Absolute #) 0.12 x10^3/uL (0.01-0.08); Eosinophil % 7.7 % (0.7-5.8); Eosinophil (Absolute #) 0.53 x10^3/uL (0.04-0.36); Hematocrit 35.5 % (34.1-44.9); Hemoglobin 11.4 g/dL (11.2-15.7); IMMATURE GRAN # 0.28 x10^3u/L (0.001-0.031); IMMATURE GRAN % 4.1 % (0.001-0.429); Lymphocyte (Absolute #) 1.52 x10^3/uL (1.18-3.74); Lymphocytes % 22.1 % (19.3-51.7); Mean Cell Volume 88.1 fL (79.4-94.8); Mean Corpuscular Hemoglobin 28.3 pg (25.6-32.2); Mean Corpuscular Hgb Concent. 32.1 g/dL (32.2-35.5); Mean Platelet Volume 9.4 fL (9.4-12.3); Monocyte (Absolute #) 0.53 x10^3/uL (0.24-0.86); Monocytes % 7.7 % (4.7-12.5); Neutrophil % 56.7 % (34.0-71.1); Platelet Count 345 x10^3/uL (182-369); Red Blood Count 4.03 x10^6/uL (3.93-5.22); Red Cell Distribution Width 14.2 % (11.7-14.4); White Blood Count 6.9 x10^3/uL (3.98-10.04)
[2023-12-07] MEDS: Hydromorphone 1 mg/ml Injection IV PRN (20:36)
[2023-12-07 20:38] LABS: ANION GAP 10.2 MEQ/L (5-15); Calcium 9.7 mg/dL (8.4-10.2); Creatinine 1 0.75 mg/dL (0.52-1.04); EST GLOMERULAR FILTRATION RATE 90.5 ML/MIN; Potassium 3.6 mmol/L (3.5-5.1)
[2023-12-07] MEDS: NON-FORMULARY ITEM PO SCH (22:10)
--- NOTE | 2023-12-07 22:26 | PCM.HP ---
History of Present Illness - Chief Complaint Chief Complaint: KNEE PAIN Date: 12/07/23 History of Present Illness: is a 63 year old female with a history of a recent right TKR 1 week ago, and a prior history over a decade ago of complex regional pain syndrome, who now presents to the hospital with intractable right leg pain similar to her prior CRPS episode. The patient in fact has a scheduled nerve block on Tuesday with Dr. Morgan, her anesthesiologist. However, the patient was not able to achieve pain control with oral narcotics. She also has been on gabapentin, and in the past she experienced mental status changes when she used to take 3600 mg total daily. She does not report and chest pain or dyspnea. The pain is from the right hip area all the way down to her right foot, with a burning quality. She has had some improvement in the pain intensity after receiving IV Dilaudid. - Review of Systems Constitutional: No Symptoms Eyes: No Symptoms Ears, Nose, & Throat: No Symptoms Respiratory: No Symptoms Cardiac: No Symptoms Abdominal/Gastrointestinal: No Symptoms Genitourinary Symptoms: No Symptoms Musculoskeletal: Arthralgias, Joint Pain Skin: No Symptoms Neurological: No Symptoms Psychological: No Symptoms Endocrine: No Symptoms Hematologic/Lymphatic: No Symptoms Immunological/Allergic: No Symptoms All Other Systems: Reviewed and Negative Medications & Allergies Home Medications: Home Medication List Cetirizine HCl [Zyrtec] 10 mg PO DAILY 07/04/20 [History Confirmed 12/07/23] Dextroamphetamine/Amphetamine [Adderall Xr 20 mg Capsule] 1 cap PO DAILY 01/01/23 [History Confirmed 12/07/23] Aspirin EC 81 mg [Ecotrin 81 mg] 1 tab PO BID 12/07/23 [History Confirmed 12/07/23] Gabapentin [Gralise] 600 mg PO TID 12/07/23 [History Confirmed 12/07/23] Hydrocodone/Acetaminophen [Hydrocodone-Acetamin 7.5-325] 2 each PO Q4-6HPRN PRN 12/07/23 [History Confirmed 12/07/23] Montelukast Sodium 10 mg [Singulair 10 MG] 10 mg PO DAILY 12/07/23 [History Confirmed 12/07/23] Polyethylene Glycol 3350 [Miralax] 17 gm PO DAILY PRN 12/07/23 [History Confirmed 12/07/23] Sennosides [Senokot] 8.6 mg PO DAILY 12/07/23 [History Confirmed 12/07/23] Allergies/Adverse Reactions: Allergies Allergy/AdvReac Type Severity Reaction Status Date / Time morphine Allergy Severe Anaphylactic Verified 12/07/23 19:19 Reaction - Past Medical History Past Medical History: Yes Neurological History: No Pertinent History ENT History: No Pertinent History Cardiac History: Hypertension Respiratory History: No Pertinent History Endocrine Medical History: No Pertinent History Musculoskelatal History: Degenerative Disk Disease, Osteoarthritis GI Medical History: No Pertinent History History: No Pertinent History Pyscho-Social History: Anxiety, Attention Deficit Disorder, Depression Reproductive Disorders: No Pertinent History Comment: SX HX: SURGERY PLANTAR FASCITIS, LEFT KNEE REPLACEMENT AND 3 NECK SURGERIES INCLUDING MOST RECENTLY PLACEMENT OF CAGE DUE TO RADICULOPATHY. OTHER PMHX: CERVICO-OCCIPITAL NEURALGIA, ANXIETY/DEPRESSION, ADULT ADHD, HEP C ANTIBODY TEST POSITIVE - Past Surgical History Past Surgical History: Yes Neuro Surgical History: No Pertinent History Cardiac History: Cardiac Catheterization Respiratory Surgery: No Pertinent History GI Surgical History: Cholecystectomy Genitourinary Surgical Hx: No Pertinent History Musculskeletal Surgical Hx: Orthopedic Surgery, Other Female Surgical History: Hysterectomy Other Surgical History: cervical. hysterectomy. bilat knee - Social History Smoking Status: Former smoker How long have you smoked: 3 months Exposure to second hand smoke: No Alcohol: None Drug Use: none - Social Determinants of Health Will the patient participate in the screening: Yes Do you worry about a steady place to live?: No Do you have any problems with any of the following?: No known problems In the past 12 months,have you had to go without utilities?: No Have you or anyone in your house had to go without enough: No Transportation Issues: No Has anyone in your support network made you feel unsafe?: No Does the patient want assistance with any of the above?: No - Physical Exam Vital Signs: Vital Signs - 24 hr Temp Pulse Resp BP Pulse Ox 12/07/23 19:40 97.0 F 111 H 18 124/64 96 General Appearance: no apparent distress, alert Neurologic Exam: alert, oriented x 3, cooperative, electro mechanical engineer II-XII nml as tested, normal mood/affect, nml cerebellar function, sensation nml Eye Exam: PERRL/EOMI Ears, Nose, Throat Exam: normal ENT inspection Neck Exam: normal inspection, non-tender, supple, full range of motion Respiratory Exam: normal breath sounds, lungs clear Cardiovascular Exam: regular rate/rhythm, normal heart sounds Gastrointestinal/Abdomen Exam: soft, normal bowel sounds Back Exam: normal range of motion Extremity Exam: normal range of motion, swelling (right leg generalized swelling noted.) Results - Labs Lab/Micro Results: Lab Results-Last 24 Hours 12/07/23 12/07/23 Range/Units 20:20 20:20 WBC 6.9 (3.98-10.04) x10^3/uL RBC 4.03 (3.93-5.22) x10^6/uL Hgb 11.4 (11.2-15.7) g/dL Hct 35.5 (34.1-44.9) % MCV 88.1 (79.4-94.8) fL MCH 28.3 (25.6-32.2) pg MCHC 32.1 L (32.2-35.5) g/dL RDW 14.2 (11.7-14.4) % Plt Count 345 (182-369) x10^3/uL MPV 9.4 (9.4-12.3) fL Gran % 56.7 (34.0-71.1) % Immature Gran % (Auto) 4.1 H (0.001-0.429) % Nucleat RBC Rel Count 0.0 (0.00-0.2) % Eos # (Auto) 0.53 H (0.04-0.36) x10^3/uL Immature Gran # (Auto) 0.28 H (0.001-0.031) x10^3u/L Absolute Lymphs (auto) 1.52 (1.18-3.74) x10^3/uL Absolute Monos (auto) 0.53 (0.24-0.86) x10^3/uL Absolute Nucleated RBC 0.00 (0.00-0.012) x10^3u/L Lymphocytes % 22.1 (19.3-51.7) % Monocytes % 7.7 (4.7-12.5) % Eosinophils % 7.7 H (0.7-5.8) % Basophils % 1.7 H (0.1-1.2) % Absolute Granulocytes 3.90 (1.56-6.13) x10^3/uL Basophils # 0.12 H (0.01-0.08) x10^3/uL Sodium 142 (135-145) mmol/L Potassium 3.6 (3.5-5.1) mmol/L Chloride 106 (98-107) mmol/L Carbon Dioxide 30 (22-30) mmol/L Anion Gap 10.2 (5-15) MEQ/L BUN 16 (7-17) mg/dL Creatinine 0.75 (0.52-1.04) mg/dL Estimated GFR 90.5 ML/MIN Glucose 95 (74-106) mg/dL Calcium 9.7 (8.4-10.2) mg/dL Assessment/Plan (1) Complex regional pain syndrome i of right lower limb Current Visit: Yes Status: Acute Assessment & Plan: Dilaudid for breakthrough pain. Continue current home regimen. Edema is generalized and nonfocal, but will obtain US of the leg to rule out DVT. Has a scheduled visit for regional nerve block on Tuesday. Code(s): G90.521 - COMPLEX REGIONAL PAIN SYNDROME I OF RIGHT LOWER LIMB (2) Right leg pain Current Visit: Yes Status: Acute Assessment & Plan: Analgesia. Follow up US to rule out DVT Code(s): M79.604 - PAIN IN RIGHT LEG (3) S/P TKR (total knee replacement) Current Visit: Yes Status: Acute Assessment & Plan: Will follow up with Dr. Velazquez Code(s): Z96.659 - PRESENCE OF UNSPECIFIED ARTIFICIAL KNEE JOINT (4) Neuropathy Current Visit: Yes Status: Acute Assessment & Plan: Continue gabapentin Code(s): G62.9 - POLYNEUROPATHY, UNSPECIFIED Telemedicine Encounter - Telemedicine Encounter Telemedicine Encounter: The entirety of this encounter was performed via Telemedicine"
[2023-12-07] MEDS: NON-FORMULARY ITEM (Gabapentin [Gralise] 600 MG Tab.Er.24h) PO SCH (22:48)
[2023-12-08] MEDS: ECOTRIN 81 MG PO SCH (07:20)
[2023-12-08] MEDS ORDERED: MEDICATION INTERVENTION MC SCH (07:30)
[2023-12-08] MEDS ORDERED: Narcan 0.4 MG/ML IV PRN (07:33)
[2023-12-08] MEDS: NORCO 7.5/325 MG TAB PO PRN (07:41)
[2023-12-08] MEDS: Singulair 10 MG PO SCH (09:09)
[2023-12-08] MEDS: SENOKOT 8.6 MG PO SCH (09:09)
[2023-12-08] MEDS: Miralax Powder 17GM PACKET PO PRN (09:09)
[2023-12-08] MEDS: ENOXAPARIN SODIUM SQ SCH (09:09)
[2023-12-08] MEDS: CLARITIN 10 MG PO SCH (09:09)
[2023-12-08] MEDS: Hydromorphone 1 mg/ml Injection IV PRN (09:17)
[2023-12-08] MEDS: PATIENT OWN MEDICATION PO SCH (09:29)
[2023-12-08 09:32] LABS: Hematocrit 35.8 % (34.1-44.9); Hemoglobin 11.3 g/dL (11.2-15.7); Mean Cell Volume 88.8 fL (79.4-94.8); Mean Corpuscular Hgb Concent. 31.6 g/dL (32.2-35.5); Mean Platelet Volume 9.3 fL (9.4-12.3); Platelet Count 350 x10^3/uL (182-369); Red Blood Count 4.03 x10^6/uL (3.93-5.22); Red Cell Distribution Width 14.4 % (11.7-14.4); White Blood Count 7.6 x10^3/uL (3.98-10.04)
[2023-12-08 09:42] LABS: ALBUMIN 4.2 g/dL (3.5-5.0); ANION GAP 10.1 MEQ/L (5-15); BILIRUBIN,TOTAL 0.7 mg/dL (0.2-1.3); Calcium 9.8 mg/dL (8.4-10.2); Creatinine 1 0.59 mg/dL (0.52-1.04); EST GLOMERULAR FILTRATION RATE 102.5 ML/MIN; Potassium 4.1 mmol/L (3.5-5.1); Total Protein 6.8 g/dL (6.3-8.2)
[2023-12-08] MEDS: Zofran 4 MG/2 ML VIAL IV PRN (09:50)
[2023-12-08] MEDS ORDERED: NON-FORMULARY ITEM (Cetirizine Hcl [Zyrtec] 10 MG Tablet) PO SCH (10:00)
[2023-12-08] MEDS ORDERED: AMPHETAMINE PO SCH (10:00)
[2023-12-08] MEDS ORDERED: DEXTROAMPHETAMINE PO SCH (10:00)
[2023-12-08] MEDS ORDERED: [UNRECOGNIZED DRUG - OTHER] PO SCH (10:00)
[2023-12-08] MEDS ORDERED: PERCOCET TABLET 5/325MG PO PRN (10:01)
[2023-12-08] MEDS: GI COCKTAIL 45 ML (Maalox/Lidocaine) PO ONE (10:43)
[2023-12-08] MEDS: PHARMACY DOSING REQUIRED: DILAUDID PCA IV ONE (11:11)
[2023-12-08] MEDS: HYDROMORPHONE 30 MG/30 ML-NS PCA IV PRN (12:01)
[2023-12-08] MEDS: Sodium Chloride 0.9% 1000 ML 1,000 ML IV SCH (12:01)
--- NOTE | 2023-12-08 12:53 | PCM.NOTE ---
Date and Time: 12/08/23 1246 Subjective Assessment: 12/08/23 is a 63 year old female with PMHX of DJD, OA, anxiety, ADD, depressionand HTN. She was a direct admit on 12/07/23. She had a recent right TKR 1 week ago, and a prior history over a decade ago of complex regional pain syndrome, who now presents to the hospital with intractable right leg pain similar to her prior CRPS episode. The patient in fact has a scheduled nerve block on Tuesday with Dr. Morgan, her anesthesiologist. However, the patient was not able to achieve pain control with oral narcotics. She also has been on gabapentin, and in the past she experienced mental status changes when she used to take 3600 mg total daily. She does not report and chest pain or dyspnea. The pain is from the right hip area all the way down to her right foot, with a burning quality. She has had some improvement in the pain intensity after receiving IV Dilaudid. This AM she had a significant amount of pain. No oral narcotic meds had been given overnight. She explained dialudid 1mg was not controlling her pain well. It was increased to 2mg and she had an episode thereafter of sweating and nausea. BP, HR and glucose were all non-concerning. She did feel the medication was helpful other than the side effects. Therefore she was changed to a REGIONAL PLANNER so she can receive smaller amounts over time than all at once. She would like to d/c in the AM so that she can have her procedure in [place]. She denies any further concerns at this time. - Review of Systems Constitutional: No Fever, No Chills Eyes: No Symptoms Ears, Nose, & Throat: No Symptoms Respiratory: No Cough, No Short Of Breath Cardiac: No Chest Pain, No Edema, No Syncope Abdominal/Gastrointestinal: No Abdominal Pain, No Nausea, No Vomiting, No Diarrhea Genitourinary Symptoms: No Dysuria Musculoskeletal: Arthralgias, Joint Redness, Joint Pain, Joint Swelling, No Back Pain, No Neck Pain Skin: No Rash Neurological: No Dizziness, No Focal Weakness, No Sensory Changes Psychological: No Symptoms Endocrine: No Symptoms Hematologic/Lymphatic: No Symptoms Immunological/Allergic: No Symptoms Objective Exam General Appearance: mild distress, alert Neurologic Exam: alert, oriented x 3, cooperative, normal mood/affect, nml cerebellar function, sensation nml, No motor deficits Skin Exam: normal color, warm, dry Eye Exam: PERRL, EOMI, eyes nml inspection Ears, Nose, Throat Exam: normal ENT inspection, pharynx normal, moist mucous membranes Neck Exam: normal inspection, non-tender, supple, full range of motion Respiratory Exam: normal breath sounds, lungs clear, No respiratory distress Cardiovascular Exam: regular rate/rhythm, normal heart sounds Gastrointestinal/Abdomen Exam: soft, No tenderness, No mass Extremity Exam: inflammation, joint swelling, limited range of motion (right knee), swelling, tenderness Back Exam: normal inspection, normal range of motion, No CVA tenderness, No vertebral tenderness Pelvic Exam: deferred Rectal Exam: deferred Objective Data Vital Signs: Vital Signs - 24 hr Temp Pulse Resp BP Pulse Ox 12/08/23 12:01 12 94 L 12/08/23 11:37 98.6 F 83 18 127/75 96 12/08/23 08:00 98.7 F 107 H 18 139/67 95 12/08/23 04:00 98.0 F 98 H 18 152/72 97 12/08/23 00:00 98.7 F 97 H 16 136/71 97 12/07/23 19:40 97.0 F 111 H 18 124/64 96 Pain Assessment - Last Documented Pain Intensity 3 Pain Scale Used 0-10 Pain Scale Intake and Output: Intake & Output 12/06/23 12/07/23 12/08/23 12/09/23 11:59 11:59 11:59 11:59 Intake Total 1380 Balance 1380 Weight 77.111 kg Lab Results: Lab Results-Last 24 Hours 12/07/23 12/07/23 12/08/23 Range/Units 20:20 20:20 09:10 WBC 6.9 7.6 (3.98-10.04) x10^3/uL RBC 4.03 4.03 (3.93-5.22) x10^6/uL Hgb 11.4 11.3 (11.2-15.7) g/dL Hct 35.5 35.8 (34.1-44.9) % MCV 88.1 88.8 (79.4-94.8) fL MCH 28.3 28.0 (25.6-32.2) pg MCHC 32.1 L 31.6 L (32.2-35.5) g/dL RDW 14.2 14.4 (11.7-14.4) % Plt Count 345 350 (182-369) x10^3/uL MPV 9.4 9.3 L (9.4-12.3) fL Gran % 56.7 (34.0-71.1) % Immature Gran % (Auto) 4.1 H (0.001-0.429) % Nucleat RBC Rel Count 0.0 (0.00-0.2) % Eos # (Auto) 0.53 H (0.04-0.36) x10^3/uL Immature Gran # (Auto) 0.28 H (0.001-0.031) x10^3u/L Absolute Lymphs (auto) 1.52 (1.18-3.74) x10^3/uL Absolute Monos (auto) 0.53 (0.24-0.86) x10^3/uL Absolute Nucleated RBC 0.00 (0.00-0.012) x10^3u/L Lymphocytes % 22.1 (19.3-51.7) % Monocytes % 7.7 (4.7-12.5) % Eosinophils % 7.7 H (0.7-5.8) % Basophils % 1.7 H (0.1-1.2) % Absolute Granulocytes 3.90 (1.56-6.13) x10^3/uL Basophils # 0.12 H (0.01-0.08) x10^3/uL Sodium 142 (135-145) mmol/L Potassium 3.6 (3.5-5.1) mmol/L Chloride 106 (98-107) mmol/L Carbon Dioxide 30 (22-30) mmol/L Anion Gap 10.2 (5-15) MEQ/L BUN 16 (7-17) mg/dL Creatinine 0.75 (0.52-1.04) mg/dL Estimated GFR 90.5 ML/MIN Glucose 95 (74-106) mg/dL POC Glucometer (74 to 106) mg/dL Calcium 9.7 (8.4-10.2) mg/dL Total Bilirubin (0.2-1.3) mg/dL AST (14-36) U/L ALT (0-35) U/L Alkaline Phosphatase (38-126) U/L Serum Total Protein (6.3-8.2) g/dL Albumin (3.5-5.0) g/dL 12/08/23 12/08/23 Range/Units 09:10 09:50 WBC (3.98-10.04) x10^3/uL RBC (3.93-5.22) x10^6/uL Hgb (11.2-15.7) g/dL Hct (34.1-44.9) % MCV (79.4-94.8) fL MCH (25.6-32.2) pg MCHC (32.2-35.5) g/dL RDW (11.7-14.4) % Plt Count (182-369) x10^3/uL MPV (9.4-12.3) fL Gran % (34.0-71.1) % Immature Gran % (Auto) (0.001-0.429) % Nucleat RBC Rel Count (0.00-0.2) % Eos # (Auto) (0.04-0.36) x10^3/uL Immature Gran # (Auto) (0.001-0.031) x10^3u/L Absolute Lymphs (auto) (1.18-3.74) x10^3/uL Absolute Monos (auto) (0.24-0.86) x10^3/uL Absolute Nucleated RBC (0.00-0.012) x10^3u/L Lymphocytes % (19.3-51.7) % Monocytes % (4.7-12.5) % Eosinophils % (0.7-5.8) % Basophils % (0.1-1.2) % Absolute Granulocytes (1.56-6.13) x10^3/uL Basophils # (0.01-0.08) x10^3/uL Sodium 139 (135-145) mmol/L Potassium 4.1 (3.5-5.1) mmol/L Chloride 103 (98-107) mmol/L Carbon Dioxide 30 (22-30) mmol/L Anion Gap 10.1 (5-15) MEQ/L BUN 13 (7-17) mg/dL Creatinine 0.59 (0.52-1.04) mg/dL Estimated GFR 102.5 ML/MIN Glucose 129 H (74-106) mg/dL POC Glucometer 144 H (74 to 106) mg/dL Calcium 9.8 (8.4-10.2) mg/dL Total Bilirubin 0.70 (0.2-1.3) mg/dL AST 30 (14-36) U/L ALT 33 (0-35) U/L Alkaline Phosphatase 76 (38-126) U/L Serum Total Protein 6.8 (6.3-8.2) g/dL Albumin 4.2 (3.5-5.0) g/dL Radiology Exams: Radiology Procedures Category Date Time Status VENOUS UNILAT/LIMITED EXTREMIT [US] Routine Exams 12/08/23 10:14 Ordered Assessment/Plan (1) Complex regional pain syndrome i of right lower limb Current Visit: Yes Status: Acute Assessment & Plan: - changed to dilaudid REGIONAL PLANNER IV - Has a scheduled visit for regional nerve block on Tuesday. - US of the leg to rule out DVT - Zofran for nausea PRN Code(s): G90.521 - COMPLEX REGIONAL PAIN SYNDROME I OF RIGHT LOWER LIMB (2) Right leg pain Current Visit: Yes Status: Acute Assessment & Plan: - Analgesia. Follow up US to rule out DVT Code(s): M79.604 - PAIN IN RIGHT LEG (3) S/P TKR (total knee replacement) Current Visit: Yes Status: Acute Assessment & Plan: - S/P 1 week - Will follow up with Dr. Velazquez in am Code(s): Z96.659 - PRESENCE OF UNSPECIFIED ARTIFICIAL KNEE JOINT (4) Neuropathy Current Visit: Yes Status: Chronic Assessment & Plan: - Continue gabapentin VTE: Lovenox Next of KIN: Spouse D/C plan: in AM Code status: Full Code(s): G62.9 - POLYNEUROPATHY, UNSPECIFIED
[2023-12-08 14:12] LABS: ANION GAP 10.5 MEQ/L (5-15); Potassium 4.5 mmol/L (3.5-5.1)
--- NOTE | 2023-12-08 15:27 | XRAY ---
Indication: Right leg swelling. DVT. Two-dimensional sonogram and color Doppler imaging major venous vessels right leg performed. Comparison: None No thrombus seen in the examined deep venous vessels right leg including greater saphenous vein. Veins demonstrate normal compressibility. Venous waveforms are normal with and without augmentation. Impression: Right leg negative for DVT.
[2023-12-09 05:15] LABS: Hematocrit 33.6 % (34.1-44.9); Hemoglobin 10.6 g/dL (11.2-15.7); Mean Cell Volume 88.9 fL (79.4-94.8); Mean Corpuscular Hgb Concent. 31.5 g/dL (32.2-35.5); Mean Platelet Volume 9.4 fL (9.4-12.3); Platelet Count 355 x10^3/uL (182-369); Red Blood Count 3.78 x10^6/uL (3.93-5.22); Red Cell Distribution Width 14.6 % (11.7-14.4); White Blood Count 8.5 x10^3/uL (3.98-10.04)
[2023-12-09 05:58] LABS: ALBUMIN 3.8 g/dL (3.5-5.0); ANION GAP 12.3 MEQ/L (5-15); BILIRUBIN,TOTAL 0.4 mg/dL (0.2-1.3); Calcium 9.6 mg/dL (8.4-10.2); Creatinine 1 0.61 mg/dL (0.52-1.04); EST GLOMERULAR FILTRATION RATE 101.7 ML/MIN; Potassium 4.4 mmol/L (3.5-5.1); Total Protein 6.5 g/dL (6.3-8.2)
[2023-12-09] MEDS: Transderm Scop 1.5MG Patch TOP ONE (06:31)
[2023-12-09 07:13] VITALS: BP 126/66; PULSE 91; TEMP 97.5
--- NOTE | 2023-12-09 07:20 | PCM.DS ---
Discharge Summary Date of Admission: 12/07/23 19:09 Date of Discharge: 12/09/23 Admitting Physician: BENJAMÍN MACARIO MD Primary Care Provider: ED LACY DO Allergies Allergies morphine Allergy (Severe, Verified 12/07/23 19:19) Anaphylactic Reaction Hospital Summary - Hospital Course Hospital Course: 12/08/23 is a 63 year old female with PMHX of DJD, OA, anxiety, ADD, depressionand HTN. She was a direct admit on 12/07/23. She had a recent right TKR 1 week ago, and a prior history over a decade ago of complex regional pain syndrome, who now presents to the hospital with intractable right leg pain similar to her prior CRPS episode. The patient in fact has a scheduled nerve block on Tuesday with Dr. Morgan, her anesthesiologist. However, the patient was not able to achieve pain control with oral narcotics. She also has been on ankur apentin, and in the past she experienced mental status changes when she used to take 3600 mg total daily. She does not report and chest pain or dyspnea. The pain is from the right hip area all the way down to her right foot, with a burning quality. She has had some improvement in the pain intensity after receiving IV Dilaudid. This AM she had a significant amount of pain. No oral narcotic meds had been given overnight. She explained dialudid 1mg was not controlling her pain well. It was increased to 2mg and she had an episode thereafter of sweating and nausea. BP, HR and glucose were all non-concerning. She did feel the medication was helpful other than the side effects. Therefore she was changed to a [employer] TRAINER so she can receive smaller amounts over time than all at once. She would like to d/c in the AM so that she can have her procedure in [place]. She denies any further concerns at this time. 12/09/23 Pt sittign up in bed this am. She did not sleep well last night. She asked for scopolamine patch for nausea. She is scheduled for a nerve block this am and needs to leave as soon as possible this morning. Pain has been better controlled with Dilaudid [employer] TRAINER. She will continue [facility] OP. Venous duplex negative for DVT. She denies CP, SOB, abd. pain, N/V/D. - Vitals & Intake/Output Vital Signs: Vital Signs Temperature 97.5 F 12/09/23 07:12 Pulse Rate 91 H 12/09/23 07:12 Respiratory Rate 17 12/09/23 07:12 Blood Pressure 126/66 12/09/23 07:12 O2 Sat by Pulse Oximetry 92 L 12/09/23 07:12 Intake & Output: Intake & Output 12/06/23 12/07/23 12/08/23 12/09/23 11:59 11:59 11:59 11:59 Intake Total 1380 220 Balance 1380 220 Weight 77.111 kg - Lab Result Diagrams: 12/09/23 04:58 12/09/23 04:58 Lab Results-Last 24 Hrs: Lab Results-Last 24 Hours 12/08/23 12/08/23 12/08/23 Range/Units 09:10 09:10 09:50 WBC 7.6 (3.98-10.04) x10^3/uL RBC 4.03 (3.93-5.22) x10^6/uL Hgb 11.3 (11.2-15.7) g/dL Hct 35.8 (34.1-44.9) % MCV 88.8 (79.4-94.8) fL MCH 28.0 (25.6-32.2) pg MCHC 31.6 L (32.2-35.5) g/dL RDW 14.4 (11.7-14.4) % Plt Count 350 (182-369) x10^3/uL MPV 9.3 L (9.4-12.3) fL Sodium 139 (135-145) mmol/L Potassium 4.1 (3.5-5.1) mmol/L Chloride 103 (98-107) mmol/L Carbon Dioxide 30 (22-30) mmol/L Anion Gap 10.1 (5-15) MEQ/L BUN 13 (7-17) mg/dL Creatinine 0.59 (0.52-1.04) mg/dL Estimated GFR 102.5 ML/MIN Glucose 129 H (74-106) mg/dL POC Glucometer 144 H (74 to 106) mg/dL Calcium 9.8 (8.4-10.2) mg/dL Total Bilirubin 0.70 (0.2-1.3) mg/dL AST 30 (14-36) U/L ALT 33 (0-35) U/L Alkaline Phosphatase 76 (38-126) U/L Serum Total Protein 6.8 (6.3-8.2) g/dL Albumin 4.2 (3.5-5.0) g/dL 12/08/23 12/09/23 12/09/23 Range/Units 13:57 04:58 04:58 WBC 8.5 (3.98-10.04) x10^3/uL RBC 3.78 L (3.93-5.22) x10^6/uL Hgb 10.6 L (11.2-15.7) g/dL Hct 33.6 L (34.1-44.9) % MCV 88.9 (79.4-94.8) fL MCH 28.0 (25.6-32.2) pg MCHC 31.5 L (32.2-35.5) g/dL RDW 14.6 H (11.7-14.4) % Plt Count 355 (182-369) x10^3/uL MPV 9.4 (9.4-12.3) fL Sodium 139 140 (135-145) mmol/L Potassium 4.5 4.4 (3.5-5.1) mmol/L Chloride 100 101 (98-107) mmol/L Carbon Dioxide 32 H 30 (22-30) mmol/L Anion Gap 10.5 12.3 (5-15) MEQ/L BUN 14 (7-17) mg/dL Creatinine 0.61 (0.52-1.04) mg/dL Estimated GFR 101.7 ML/MIN Glucose 119 H (74-106) mg/dL POC Glucometer (74 to 106) mg/dL Calcium 9.6 (8.4-10.2) mg/dL Total Bilirubin 0.40 (0.2-1.3) mg/dL AST 23 (14-36) U/L ALT 30 (0-35) U/L Alkaline Phosphatase 82 (38-126) U/L Serum Total Protein 6.5 (6.3-8.2) g/dL Albumin 3.8 (3.5-5.0) g/dL - Radiology Exams Ordered Rad Exams-Entire Visit: Radiology Procedures Category Date Time Status VENOUS UNILAT/LIMITED EXTREMIT [US] Routine Exams 12/08/23 10:14 Completed - Procedures and Test Procedures and Tests throughout Hospitalization: Therapy Orders & Screens 12/07/23 19:50 PT Eval & Treat ( Order) ONCE Reason for Eval:: KNEE PAIN S/P TKR Diagnosis: KNEE PAIN 12/07/23 19:57 OT Screen per Nursing Assess ONCE Comment: Protocol Order Physician Instructions: Greater than 3 points order OT Admission Screening Reason For Exam: Triggered on Admission Diagnosis: KNEE PAIN Open Wound/Cellutlitis/Pressure Ulcers: Yes Acute Fx/ORIF/Change in wt bearing status: No Severe MUSCULOSKELETAL pain: No ADL Dysfunction: No Acute CVA w/Hemiparesis/Hemiplegia: No Decreased Functional Mobility/Strength: Yes Sprain/Strain: No Acute Post-op Mobility Dysfunction: Yes Total Points: 9 PT Screen per Nursing Assess ONCE Comment: Protocol Order Physician Instructions: Greater than 3 points order PT Admission Screenin Reason For Exam: Triggered on Admission Diagnosis: KNEE PAIN Open Wound/Cellutlitis/Pressure Ulcers: Yes Acute Fx/ORIF/Change in wt bearing status: No Severe MUSCULOSKELETAL pain: No ADL Dysfunction: No Acute CVA w/Hemiparesis/Hemiplegia: No Decreased Functional Mobility/Strength: Yes Sprain/Strain: No Acute Post-op Mobility Dysfunction: Yes Total Points: 9 12/08/23 12:50 Oxygen Nasal Cannula 2 lpm Comment: Diagnosis: KNEE PAIN 12/08/23 13:34 EKG STAT Comment: Diagnosis: KNEE PAIN Discharge Exam General Appearance: no apparent distress, alert Neurologic Exam: alert, oriented x 3, cooperative, normal mood/affect, nml cerebellar function, sensation nml, No motor deficits Eye Exam: PERRL, EOMI, eyes nml inspection Ears, Nose, Throat Exam: normal ENT inspection, pharynx normal, moist mucous membranes Neck Exam: normal inspection, non-tender, supple, full range of motion Respiratory Exam: normal breath sounds, lungs clear, No respiratory distress Cardiovascular Exam: regular rate/rhythm, normal heart sounds Gastrointestinal/Abdomen Exam: soft, No tenderness, No mass Pelvic Exam: deferred Rectal Exam: deferred Back Exam: normal inspection, normal range of motion, No CVA tenderness, No vertebral tenderness Extremity Exam: normal inspection, inflammation, joint swelling, limited range of motion, swelling, tenderness (RLE) Skin Exam: normal color, warm, dry Wound Assessment: Skin/Wound Assessment Wound/Incision Assessment Start: 12/09/23 04:49 Text: Status: Active Freq: Q6H Protocol: Document 12/09/23 04:49 [facility] (Rec: 12/09/23 04:51 [facility] [id number]) Wound/Incision Assessment Right Knee Wound Assessment Shift Assessment Wound Type Incision Wound Stage Non Pressure Wound Dressing Status Changed Drainage Amount Minimal Drainage Odor None/Absent General Appearance Sutures Intact,Reddened Primary Dressing [facility] Final Diagnosis/Problem List - Final Discharge Diagnosis/Problem (1) Complex regional pain syndrome i of right lower limb Current Visit: Yes Status: Acute Code(s): G90.521 - COMPLEX REGIONAL PAIN SYNDROME I OF RIGHT LOWER LIMB (2) Right leg pain Current Visit: Yes Status: Acute Code(s): M79.604 - PAIN IN RIGHT LEG (3) S/P TKR (total knee replacement) Current Visit: Yes Status: Acute Code(s): Z96.659 - PRESENCE OF UNSPECIFIED ARTIFICIAL KNEE JOINT (4) Neuropathy Current Visit: Yes Status: Chronic Assessment & Plan: (1) Complex regional pain syndrome i of right lower limb Current Visit: Yes Status: Acute Assessment & Plan: - changed to dilaudid [employer] TRA[employer]ER IV - Has a scheduled visit for regional nerve block on Tuesday. - US of the leg to rule out DVT- negative - Zofran for nausea PRN - Scopolamine patch for nausea added this AM Code(s): G90.521 - COMPLEX REGIONAL PAIN SYNDROME I OF RIGHT LOWER LIMB (2) Right leg pain Current Visit: Yes Status: Acute Assessment & Plan: - Analgesia. Follow up US to rule out DVT Code(s): M79.604 - PAIN IN RIGHT LEG (3) S/P TKR (total knee replacement) Current Visit: Yes Status: Acute Assessment & Plan: - S/P 1 week - Will follow up with Dr. Velazquez in am Code(s): Z96.659 - PRESENCE OF UNSPECIFIED ARTIFICIAL KNEE JOINT (4) Neuropathy Current Visit: Yes Status: Chronic Assessment & Plan: - Continue gabapentin Code(s): G62.9 - POLYNEUROPATHY, UNSPECIFIED Code(s): G62.9 - POLYNEUROPATHY, UNSPECIFIED - Discharge Discharge Date: 12/09/23 Disposition: Home, Self-Care Condition: Stable Prescriptions: Continue Cetirizine HCl [Zyrtec] 10 mg PO DAILY Dextroamphetamine/Amphetamine [Adderall Xr 20 mg Capsule] 1 cap PO DAILY Sennosides [Senokot] 8.6 mg PO DAILY Aspirin EC 81 mg [Ecotrin 81 mg] 1 tab PO BID Hydrocodone/Acetaminophen [Hydrocodone-Acetamin 7.5-325] 2 each PO Q4-6HPRN PRN PRN Reason: Pain Montelukast Sodium 10 mg [Singulair 10 MG] 10 mg PO DAILY Gabapentin [Gralise] 600 mg PO TID Polyethylene Glycol 3350 [Miralax] 17 gm PO DAILY PRN PRN Reason: stool softener Instructions: Knee pain Follow up with: ED LACY DO [Primary Care Provider] -
[2023-12-09 07:40] VITALS: RESP 18; O2SAT 95
[2023-12-09] MEDS: PATIENT OWN MEDICATION PO SCH (08:37)
== END 2023-12-09 09:17 | disposition home or self-care (01) ==
LOC: MED SURG 19:09
PROVIDERS: ADMIT Internal Medicine; ATTEND Internal Medicine
DX: G90.521 Complex regional pain syndrome I of right lower limb (principal); M79.604 Pain in right leg; G62.9 Polyneuropathy, unspecified; I10 Essential (primary) hypertension; Z96.651 Presence of right artificial knee joint; Z79.899 Other long term (current) drug therapy
CPT/HCPCS: 36415; 80048; 80051; 80053; 82947; 85025; 85027; 86140; 93005; 93268; 93971; 94762; 97162; G0378; G0379; Q3014; J1170; J1650; J2405; A9270-GY